=== PATIENT | female | born 1990 ===

== ENCOUNTER 2022-12-25 09:13 | Inpatient (IN) | payer MEDICAID ==
[2022-12-25] MEDS ORDERED: Dexmedetomidine 200 MCG/2 ML SDV ONE (09:20)
[2022-12-25] MEDS ORDERED: Sodium Chloride 0.9% 20 ML SDV IV PRN (09:21)
[2022-12-25] MEDS ORDERED: Sodium Chloride 0.9% 10 ML Syringe FLUSH PRN (09:21)
[2022-12-25] MEDS ORDERED: Morphine PF 10 MG/10 ML SDV ONE (09:21)
[2022-12-25] MEDS ORDERED: Sodium Chloride 0.9% 2.5 ML Syringe FLUSH PRN (09:21)
[2022-12-25] MEDS ORDERED: Citric Acid/Sodium Citrate Solution 30 ML Cup PO ONE (09:21)
[2022-12-25] MEDS ORDERED: ceFAZolin 2 GM in Sodium Chloride 0.9% 50 ML IV ONE (09:21)
[2022-12-25] MEDS ORDERED: Ondansetron 4 MG/2 ML SDV ONE (09:22)
[2022-12-25] MEDS ORDERED: Water For Injection, Sterile 20 ML ONE (09:27)
[2022-12-25] MEDS ORDERED: Lactated Ringers 1,000 ML IV SCH ×2 (09:30→12:15)
[2022-12-25] MEDS ORDERED: Oxytocin/0.9 % Sodium Chloride 30 UNIT/500 ML BAG IV SCH (09:30)
[2022-12-25] MEDS ORDERED: ceFAZolin 2 GM Vial ONE (11:16)
[2022-12-25] MEDS ORDERED: Oxytocin 10 Units/1 ML SDV ONE (11:16)
[2022-12-25] MEDS ORDERED: Ropivacaine 0.5% 5 MG/ML 30 ML SDV ONE (11:50)
[2022-12-25] MEDS ORDERED: Oxytocin 10 Units/1 ML SDV IM PRN (12:11)
[2022-12-25] MEDS ORDERED: Acetaminophen/oxyCODONE 325-5 MG Tab PO PRN ×2 (12:11→12:31)
[2022-12-25] MEDS ORDERED: Bisacodyl 10 MG Supp RECTAL PRN (12:11)
[2022-12-25] MEDS ORDERED: Misoprostol 200 MCG Tab RECTAL PRN (12:11)
[2022-12-25] MEDS ORDERED: diphenhydrAMINE 50 MG/ML SDV IVPUSH PRN ×2 (12:11→12:31)
[2022-12-25] MEDS ORDERED: Lanolin 100% Cream 7 GM Tube TOP PRN (12:11)
[2022-12-25] MEDS ORDERED: Ondansetron 4 MG/2 ML SDV IVPUSH PRN ×2 (12:11→12:31)
[2022-12-25] MEDS ORDERED: Methylergonovine 0.2 MG/1 ML Amp IM PRN (12:11)
[2022-12-25] MEDS ORDERED: Tranexamic Acid 1,000 MG in Sodium Chloride 0.9% 100 ML IV PRN (12:11)
[2022-12-25] MEDS ORDERED: Ketorolac 30 MG/ML SDV IVPUSH SCH (12:15)
[2022-12-25] MEDS ORDERED: fentaNYL 100 MCG/2 ML SDV IVPUSH PRN (12:31)
[2022-12-25] MEDS ORDERED: ePHEDrine 50 MG/ML SDV IVPUSH PRN (12:31)
[2022-12-25] MEDS: Ketorolac 30 MG/ML SDV IVPUSH SCH ×2 (14:08→20:35)
[2022-12-25] MEDS: Simethicone 80 MG Tab.Chew PO SCH ×2 (18:12→23:46)
[2022-12-25] MEDS: Docusate Sodium 100 MG Cap PO SCH (21:19)
[2022-12-26] MEDS: Ketorolac 30 MG/ML SDV IVPUSH SCH ×3 (02:08→14:17)
[2022-12-26] MEDS: Simethicone 80 MG Tab.Chew PO SCH ×4 (05:58→23:33)
[2022-12-26] MEDS: Docusate Sodium 100 MG Cap PO SCH ×2 (08:13→21:11)
[2022-12-26] MEDS: Ibuprofen 800 MG Tab PO PRN (20:09)
[2022-12-27] MEDS: Ibuprofen 800 MG Tab PO PRN ×2 (04:20→11:12)
[2022-12-27] MEDS: Acetaminophen/oxyCODONE 325-5 MG Tab PO PRN ×2 (04:21→09:05)
[2022-12-27] MEDS: Simethicone 80 MG Tab.Chew PO SCH ×2 (05:55→11:57)
[2022-12-27] MEDS: Docusate Sodium 100 MG Cap PO SCH (08:38)
== END 2022-12-27 12:30 | disposition home or self-care (01) | DRG 788 ==
LOC: MW.OBCHECK 09:13 → MW.OB 09:15 → OBSVTOIN 11:27 → MW.OB 15:45
PROVIDERS: ADMIT Obstetrics & Gynecology; ATTEND Obstetrics & Gynecology
PROC: 10D00Z1 Extraction of Products of Conception, Low, Open Approach (ICD-10-PCS; principal; 2022-12-25)
DX: O82 Encounter for cesarean delivery without indication (principal); Z37.0 Single live birth; Z3A.39 39 weeks gestation of pregnancy; Z98.890 Other specified postprocedural states; Z87.891 Personal history of nicotine dependence
CPT/HCPCS: 01961; 36415; 64488; 82803; 85014; 85018; 85027; 86592; 86850; 86900; 86901; 86920; A9270-GY; J0690; J1885; J2274; J2405; J2590; J2795; J3490